=== PATIENT | female | born 1935 | race Caucasian/White ===

== ENCOUNTER 2018-07-12 23:57 | Emergency (ER) | payer OTHER, BC ==
[2018-07-13 00:46] LABS: Absolute Lymphocytes (CBC) 1.2 K/uL (0.7-4.9); Absolute Monocytes 0.5 K/uL (0.1-1.3); Absolute Neutrophil 3.3 K/uL (1.8-8.0); Eosinophils % 3.2 % (0-4.4); Hematocrit 41.2 % (36.0-45.0); Lymphocytes % 22.8 % (15.3-44.8); MCH 32.1 pg (27.0-35.0); MCV 94.3 fL (80-100); MPV 7.8 fL (7.6-11.3); Monocytes % 9.8 % (3.3-12.3); RBC Red Blood Cell Count 4.37 M/uL (3.86-4.86)
[2018-07-13 00:50] LABS: Protime INR 0.94
[2018-07-13] MEDS ORDERED: NA CHLORIDE 0.9% 1,000 ML ONE (01:10)
[2018-07-13 01:11] LABS: ALT/SGPT 33 U/L (12-78); AST/SGOT 33 U/L (15-37); Albumin 3.4 g/dL (3.4-5.0); Alkaline Phosphatase 57 U/L (45-117); BUN Blood Urea Nitrogen 21 mg/dL (7-18); Bicarbonate 28 mmol/L (21-32); Bilirubin Direct 0.1 mg/dL (0-0.2); Bilirubin Total 0.4 mg/dL (0.2-1.0); CKMB Creatine Kinase MB < 1.0 ng/mL (0.3-3.6); Creatine Phosphokinase 73 U/L (26-192); Glucose Level 113 mg/dL (74-106); Magnesium 2.3 mg/dL (1.8-2.4); NT PRO-BNP 163 pg/mL (<450); Potassium 3.8 mmol/L (3.5-5.1); Protein, Total 6.8 g/dL (6.4-8.2); Sodium Level 141 mmol/L (136-145)
[2018-07-13 01:50] LABS: Urine Blood 1+ (NEG); Urine Glucose NEGATIVE (NEG); Urine Protein NEGATIVE (NEG); Urine Specific Gravity 1.015 (1.005-1.030); Urine pH 6.5 (5.0-7.0)
--- NOTE | 2018-07-13 06:01 | EKG ---
Test Date: 2018-07-13 Test Time: 00:37:03 Grease Man: YUE MEASUREMENT RESULTS: Intervals: Rate: 67 IA: 186 QRSD: 104 QT: 432 QTc: 456 [place]: P: 55 IA: 186 QRS: -51 T: 39 INTERPRETIVE STATEMENTS: Normal sinus rhythm Left axis deviation Abnormal ECG Compared to ECG 10/05/2011 12:35:18 Sinus bradycardia no longer present T-wave abnormality no longer present Electronically Signed On 07-13-18 06:01:11 CDT by Karthik Meade
--- NOTE | 2018-07-13 06:12 | ER ---
Nurse's Notes [facility] Name: Ashanti Chong Age: 83 yrs Sex: Female : 1935 Arrival Date: 07/13/2018 Time: 00:02 Bed 8 Private MD: Diagnosis: Essential (primary) hypertension;Strain of muscle, fascia and tendon at neck level;Headache Presentation: 07/13 00:03 Presenting complaint: Patient states: I had this head pain tonight that went up the tl2 left side of my neck into my head. It's a little better now. Reports slight dizziness at home. Transition of care: patient was not received from another setting of care. Onset of symptoms was July 12, 2018 at 23:00. Risk Assessment: Do you want to hurt yourself or someone else? Patient reports no desire to harm self or others. Initial Sepsis Screen: Does the patient meet any 2 criteria? No. Patient's initial sepsis screen is negative. Does the patient have a suspected source of infection? No. Patient's initial sepsis screen is negative. Care prior to arrival: None. 00:03 Method Of Arrival: [facility]: [facility] tl2 00:03 Acuity: ELIZABET 3 tl2 Triage Assessment: 00:07 Headache History: Denies prior headaches. General: Appears in no apparent distress. tl2 comfortable, Behavior is calm, cooperative, appropriate for age. Pain: Complains of pain in left gnosticist Pain radiates to left side of neck Pain currently is 2 out of 10 on a pain scale. Pain began 1 hour ago. Also complains of no other associated symptoms. Neuro: Level of Consciousness is awake, alert, obeys commands, Oriented to person, place, time, situation. Cardiovascular: Denies chest pain. Respiratory: Airway is patent Respiratory effort is even, unlabored, Respiratory pattern is regular, symmetrical. GI: No signs and/or symptoms were reported involving the gastrointestinal system. : No signs and/or symptoms were reported regarding the genitourinary system. Derm: Skin is pink, warm \T\ dry. Historical: - Allergies: 00:07 Cipro; tl2 - Home Meds: 00:07 Carafate 100 mg/mL Oral susp 10 mL 4 times per day [Active]; CoQ-10 200 mg Oral cap tl2 [Active]; cranberry Oral [Active]; ducusate [Active]; Flonase Allergy Relief 50 mcg/actuation nasal spsn 2 sprays once daily [Active]; folic acid 400 mcg Oral tab 1 tab once daily [Active]; magnesium oxide 500 mg Oral tab [Active]; meloxicam 15 mg Oral tab 1 tab once daily [Active]; methotrexate sodium 2.5 mg Oral tab 1 tab once wkly [Active]; Nexium 40 mg Oral cpDR 1 cap once daily [Active]; red yeast rice Oral [Active]; Vesicare 10 mg Oral tab 1 tab once daily [Active]; - PMHx: 00:07 Arthritis; ibs; tl2 - PSHx: 00:07 Cholecystectomy; Hysterectomy; tl2 - Immunization history:: Adult Immunizations up to date. - Social history:: Smoking status: Patient/guardian denies using tobacco. - Ebola Screening: : No symptoms or risks identified at this time. Screenin:09 Abuse screen: Denies threats or abuse. Nutritional screening: No deficits noted. tl2 Tuberculosis screening: No symptoms or risk factors identified. Fall Risk None identified. Assessment: 00:09 General: see triage assessment. tl2 01:00 Reassessment: Patient appears in no apparent distress at this time. Patient and/or tl2 family updated on plan of care and expected duration. Pain level reassessed. Patient is alert, oriented x 3, equal unlabored respirations, skin warm/dry/pink. 02:05 Reassessment: Patient appears in no apparent distress at this time. Patient and/or tl2 family updated on plan of care and expected duration. Pain level reassessed. Patient is alert, oriented x 3, equal unlabored respirations, skin warm/dry/pink. 03:00 Reassessment: Placed another IV for CT angio of head and neck. CT notified. tl2 03:59 Reassessment: Pt out to CT. tl2 05:04 Reassessment: Patient appears in no apparent distress at this time. Patient and/or tl2 family updated on plan of care and expected duration. Pain level reassessed. Patient is alert, oriented x 3, equal unlabored respirations, skin warm/dry/pink. Awaiting CT result. 06:25 Reassessment: Patient appears in no apparent distress at this time. Patient and/or tl2 family updated on plan of care and expected duration. Pain level reassessed. Patient is alert, oriented x 3, equal unlabored respirations, skin warm/dry/pink. Pt verbalized understanding of discharge instructions, need for follow up and prescription usage Patient states feeling better. Vital Signs: 00:07 BP 184 / 60; Pulse 74; Resp 18; Temp 98.4(O); Pulse Ox 98% on R/A; Weight 63.96 kg; tl2 Height 5 ft. 4 in. (162.56 cm); Pain 2/10; 01:02 BP 178 / 66; Pulse 80; Resp 18; Pulse Ox 100% on R/A; tl2 02:04 BP 174 / 78; Pulse 71; Resp 18; Pulse Ox 99% on R/A; tl2 03:02 BP 148 / 60; Pulse 64; Resp 18; Pulse Ox 95% on R/A; tl2 05:04 BP 178 / 52; Pulse 63; Resp 18; Pulse Ox 96% on R/A; tl2 06:04 BP 167 / 50; Pulse 61; Resp 18; Pulse Ox 98% on R/A; tl2 00:07 Body Mass Index 24.20 (63.96 kg, 162.56 cm) tl2 ED Course: 00:02 Patient arrived in ED. rg2 00:02 Katarzyna Morgan, TIFF is Primary Nurse. tl2 00:04 Triage completed. tl2 00:07 Arm band placed on right wrist. tl2 00:09 Patient has correct armband on for positive identification. Bed in low position. Call tl2 light in reach. Side rails up X2. 00:09 Maintain EMS IV. Dressing intact. Good blood return noted. Site clean \T\ dry. Gauge \T\ tl 2 site: 22 g R wrist. 00:15 Paras Salazar MD is Attending Physician. yordan 00:36 X-ray completed. Portable x-ray completed in exam room. Patient tolerated procedure ml well. 00:37 XRAY Chest (1 view) In Process Unspecified. EDMS 02:49 Radiology exam delayed due to IV insertion attempt and/or patient not having kw1 appropriate IV at this time. 03:00 No provider procedures requiring assistance completed. Inserted saline lock: 22 gauge tl2 in left antecubital area, using aseptic technique. 04:[address] via stretcher. kw1 04:24 Head angio In Process Unspecified. EDMS 04:25 Neck Angio In Process Unspecified. EDMS 06:12 Balwinder Schwarz MD is Referral Physician. [facility] 06:25 IV discontinued, intact, bleeding controlled, No redness/swelling at site. Pressure tl2 dressing applied. Administered Medications: 01:07 Drug: NS 0.9% 1000 ml Route: IV; Rate: 125 ml/hr; Site: right wrist; tl2 06:27 Follow up: IV Status: Completed infusion tl2 Outcome: 06:12 Discharge ordered by . yordan 06:25 Discharged to home ambulatory, with family. tl2 06:25 Condition: stable 06:25 Discharge instructions given to patient, Instructed on discharge instructions, follow up and referral plans. medication usage, Demonstrated understanding of instructions, follow-up care, medications, Prescriptions given X 1. 06:30 Patient left the ED. tl2 Signatures: Dispatcher [employer] EDMA Tatyana Tavarez rg2 Paras Salazar MD MD cha Lopez, Melissa ml Knox, Taylor, TIFF RN tl2 Moni Marcial kw1
--- NOTE | 2018-07-13 06:13 | EDPHYS ---
Physician Documentation [facility] Name: Ashanti Chong Age: 83 yrs Sex: Female : 1935 Arrival Date: 07/13/2018 Time: 00:02 Bed 8 Private MD: ED Physician Paras Salazar HPI: 07/13 00:24 This 83 yrs old Female presents to ER via EMS with complaints of Neck Pain, yordan <24hrs Old. 00:24 The patient or guardian complains of pain. yordan Historical: - Allergies: 00:07 Cipro; tl2 - Home Meds: 00:07 Carafate 100 mg/mL Oral susp 10 mL 4 times per day [Active]; CoQ-10 200 mg Oral cap tl2 [Active]; cranberry Oral [Active]; ducusate [Active]; Flonase Allergy Relief 50 mcg/actuation nasal spsn 2 sprays once daily [Active]; folic acid 400 mcg Oral tab 1 tab once daily [Active]; magnesium oxide 500 mg Oral tab [Active]; meloxicam 15 mg Oral tab 1 tab once daily [Active]; methotrexate sodium 2.5 mg Oral tab 1 tab once wkly [Active]; Nexium 40 mg Oral cpDR 1 cap once daily [Active]; red yeast rice Oral [Active]; Vesicare 10 mg Oral tab 1 tab once daily [Active]; - PMHx: 00:07 Arthritis; ibs; tl2 - PSHx: 00:07 Cholecystectomy; Hysterectomy; tl2 - Immunization history:: Adult Immunizations up to date. - Social history:: Smoking status: Patient/guardian denies using tobacco. - Ebola Screening: : No symptoms or risks identified at this time. ROS: 00:26 Constitutional: Negative for fever, chills, and weight loss, Eyes: Negative for injury, yordan pain, redness, and discharge, ENT: Negative for injury, pain, and discharge, Neck: Negative for injury, pain, and swelling, Cardiovascular: Negative for chest pain, palpitations, and edema, Respiratory: Negative for shortness of breath, cough, wheezing, and pleuritic chest pain, Abdomen/GI: Negative for abdominal pain, nausea, vomiting, diarrhea, and constipation, Back: Negative for injury and pain, : Negative for injury, bleeding, discharge, and swelling, MS/Extremity: Negative for injury and deformity, Skin: Negative for injury, rash, and discoloration, Psych: Negative for depression, anxiety, suicide ideation, homicidal ideation, and hallucinations, Allergy/Immunology: Negative for hives, rash, and allergies, Endocrine: Negative for neck swelling, polydipsia, polyuria, polyphagia, and marked weight changes, Hematologic/Lymphatic: Negative for swollen nodes, abnormal bleeding, and unusual bruising. 00:26 Neuro: Positive for headache. Exam: 00:26 Constitutional: This is a well developed, well nourished patient who is awake, alert, yordan and in no acute distress. Head/Face: Normocephalic, atraumatic. Eyes: Pupils equal round and reactive to light, extra-ocular motions intact. Lids and lashes normal. Conjunctiva and sclera are non-icteric and not injected. Cornea within normal limits. Periorbital areas with no swelling, redness, or edema. ENT: Nares patent. No nasal discharge, no septal abnormalities noted. Tympanic membranes are normal and external auditory canals are clear. Oropharynx with no redness, swelling, or masses, exudates, or evidence of obstruction, uvula midline. Mucous membranes moist. Neck: Trachea midline, no thyromegaly or masses palpated, and no cervical lymphadenopathy. Supple, full range of motion without nuchal rigidity, or vertebral point tenderness. No Meningismus. Chest/axilla: Normal chest wall appearance and motion. Nontender with no deformity. No lesions are appreciated. Cardiovascular: Regular rate and rhythm with a normal S1 and S2. No gallops, murmurs, or rubs. Normal PMI, no JVD. No pulse deficits. Respiratory: Lungs have equal breath sounds bilaterally, clear to auscultation and percussion. No rales, rhonchi or wheezes noted. No increased work of breathing, no retractions or nasal flaring. Abdomen/GI: Soft, non-tender, with normal bowel sounds. No distension or tympany. No guarding or rebound. No evidence of tenderness throughout. Back: No spinal tenderness. No costovertebral tenderness. Full range of motion. Skin: Warm, dry with normal turgor. Normal color with no rashes, no lesions, and no evidence of cellulitis. MS/ Extremity: Pulses equal, no cyanosis. Neurovascular intact. Full, normal range of motion. Neuro: Awake and alert, GCS 15, oriented to person, place, time, and situation. Cranial nerves II-XII grossly intact. Motor strength 5/5 in all extremities. Sensory grossly intact. Cerebellar exam normal. Normal gait. Psych: Awake, alert, with orientation to person, place and time. Behavior, mood, and affect are within normal limits. 06:08 Neck: ROM/movement: is normal, no acute changes, Meningeal signs: are not present, [facility] Kernig's sign is negative, Brudzinski's sign is negative. Vital Signs: 00:07 BP 184 / 60; Pulse 74; Resp 18; Temp 98.4(O); Pulse Ox 98% on R/A; Weight 63.96 kg; tl2 Height 5 ft. 4 in. (162.56 cm); Pain 2/10; 01:02 BP 178 / 66; Pulse 80; Resp 18; Pulse Ox 100% on R/A; tl2 02:04 BP 174 / 78; Pulse 71; Resp 18; Pulse Ox 99% on R/A; tl2 03:02 BP 148 / 60; Pulse 64; Resp 18; Pulse Ox 95% on R/A; tl2 05:04 BP 178 / 52; Pulse 63; Resp 18; Pulse Ox 96% on R/A; tl2 06:04 BP 167 / 50; Pulse 61; Resp 18; Pulse Ox 98% on R/A; tl2 00:07 Body Mass Index 24.20 (63.96 kg, 162.56 cm) tl2 MDM: 00:15 Patient medically screened. [facility] 00:27 Data reviewed: vital signs, nurses notes, lab test result(s), EKG, radiologic studies, [facility] CT scan, plain films. 07/13 00:24 Order name: Basic Metabolic Panel [facility] 07/13 00:24 Order name: CBC with Diff [facility] 07/13 00:24 Order name: Ckmb [facility] 07/13 00:24 Order name: CPK [facility] 07/13 00:24 Order name: LFT's; Complete Time: :46 [facility] 07/13 00:24 Order name: Magnesium; Complete Time: :46 [facility] 07/13 00:24 Order name: NT PRO-BNP; Complete Time: :46 [facility] 07/13 00:24 Order name: PT-INR; Complete Time: :46 [facility] 07/13 00:24 Order name: Ptt, Activated; Complete Time: : [facility] 07/13 00:24 Order name: Troponin (emerg Dept Use Only); Complete Time: [facility] 07/13 00:24 Order name: Basic Metabolic Panel; Complete Time: [facility] 07/13 00:24 Order name: CBC with Automated Diff; Complete Time: [facility] 07/13 00:24 Order name: CKMB Creatine Kinase MB; Complete Time: [facility] 07/13 00:24 Order name: Creatine Phosphokinase; Complete Time: [facility] 07/13 00:24 Order name: XRAY Chest (1 view) [facility] 07/13 00:24 Order name: EKG; Complete Time: 00:24 [facility] 07/13 00:24 Order name: Cardiac monitoring; Complete Time: 00: [facility] 07/13 00:24 Order name: EKG - Nurse/Tech; Complete Time: 01: [facility] 07/13 00:24 Order name: IV Saline Lock; Complete Time: 00: [facility] 07/13 00:24 Order name: Labs collected and sent; Complete Time: 00: [facility] 07/13 00:24 Order name: O2 Per Protocol; Complete Time: 00: [facility] 07/13 00:24 Order name: O2 Sat Monitoring; Complete Time: 00: [facility] 07/13 00:24 Order name: Urine Dipstick-Ancillary (obtain specimen); Complete Time: 01:20 [facility] 07/13 00:27 Order name: Head angio [facility] 07/13 00:27 Order name: Neck Angio [facility] 07/13 01:18 Order name: Urine Dipstick--Ancillary (enter results); Complete Time: 02:45 rg2 Administered Medications: 01:07 Drug: NS 0.9% 1000 ml Route: IV; Rate: 125 ml/hr; Site: right wrist; tl2 06:27 Follow up: IV Status: Completed infusion tl2 Disposition: 07/13/18 06:12 Discharged to Home. Impression: Essential (primary) hypertension, Strain of muscle, fascia and tendon at neck level, Headache. - Condition is Stable. - Discharge Instructions: General Headache Without Cause, Hypertension, Muscle Strain, Hypertension, Zgzv-[id number], Muscle Strain, [id number], General Headache Without Cause, Yaek-lo-Arei, Managing Your Hypertension. - Prescriptions for Tylenol- Codeine #3 300-30 mg Oral Tablet - take 1 tablet by ORAL route every 4 hours As needed; 24 tablet. - Medication Reconciliation Form, Thank You Letter, Antibiotic Education, Prescription Opioid Use form. - Follow up: Private Physician; When: 2 - 3 days; Reason: Recheck today's complaints, Continuance of care, Re-evaluation by your physician. Follow up: Balwinder Schwarz MD; When: 2 - 3 days; Reason: Recheck today's complaints, Continuance of care, Re-evaluation by your physician. - Problem is new. - Symptoms have improved. Signatures: Dispatcher [employer] EDMS Paras Salazar MD MD cha Knox, Taylor RN RN tl2 Corrections: (The following items were deleted from the chart) 06:13 06:12 07/13/2018 06:12 Discharged to Home. Impression: Essential (primary) yordan hypertension; Strain of muscle, fascia and tendon at neck level. Condition is Stable. Discharge Instructions: Hypertension, Hypertension, Haih-pl-Lanj, Managing Your Hypertension, General Headache Without Cause, General Headache Without Cause, Eyyy-oa-Eunr. Prescriptions for Tylenol-Codeine #3 300-30 mg Oral Tablet - take 1 tablet by ORAL route every 4 hours As needed; 24 tablet. and Forms are Medication Reconciliation Form, Thank You Letter, Antibiotic Education, Prescription Opioid Use. Follow up: Private Physician; When: 2 - 3 days; Reason: Recheck today's complaints, Continuance of care, Re-evaluation by your physician. Follow up: Balwinder Schwarz; When: 2 - 3 days; Reason: Recheck today's complaints, Continuance of care, Re-evaluation by your physician. Problem is new. Symptoms have improved. yordan 06:30 06:13 07/13/2018 06:12 Discharged to Home. Impression: Essential (primary) tl2 hypertension; Strain of muscle, fascia and tendon at neck level; Headache. Condition is Stable. Discharge Instructions: Hypertension, Hypertension, Mhlh-zh-Lgae, Managing Your Hypertension, General Headache Without Cause, General Headache Without Cause, Sxwl-[id number]-[id number]. Prescriptions for Tylenol-Codeine #3 300-30 mg Oral Tablet - take 1 tablet by ORAL route every 4 hours As needed; 24 tablet. and Forms are Medication Reconciliation Form, Thank You Letter, Antibiotic Education, Prescription Opioid Use. Follow up: Private Physician; When: 2 - 3 days; Reason: Recheck today's complaints, Continuance of care, Re-evaluation by your physician. Follow up: Balwinder Schwarz; When: 2 - 3 days; Reason: Recheck today's complaints, Continuance of care, Re-evaluation by your physician. Problem is new. Symptoms have improved. yordan
[2018-07-13 06:36] VITALS: TEMP 98.4
[2018-07-13 06:42] VITALS: BP 167/50; O2SAT 98
--- NOTE | 2018-07-13 08:30 | RAD REPORT ---
EXAM DESCRIPTION: Thanh Single View07/13/2018 12:38 am CLINICAL HISTORY: Cough COMPARISON: 2012 FINDINGS: The lungs are mildly hyperaerated. The lungs appear clear of acute infiltrate. The heart i s normal size IMPRESSION: No acute abnormalities displayed
--- NOTE | 2018-07-13 11:21 | RAD REPORT ---
EXAM DESCRIPTION: Cecilymatthew Angio07/13/2018 4:25 am CLINICAL HISTORY: Syncope/headache/neck pain COMPARISON: None TECHNIQUE: 50 cc Isovue [address] angiogram neck was performed. Coronal and sagittal reconstruction was done. 3D MIP reconstruction was performed All CT scans are performed using dose optimization technique as appropriate and may include automated exposure control or mA/KV adjustment according to patient size. FINDINGS: Mild plaque is present within the carotid arteries. A high-grade stenosis is not noted. An occlusion is not seen. A dissection is not noted. Vertebral arteries are codominant without an abnormality. IMPRESSION: Mild plaque in the carotid arteries without evidence of a significant stenosis
--- NOTE | 2018-07-13 11:22 | RAD REPORT ---
EXAM DESCRIPTION: CTHead angio07/13/2018 7:05 am CLINICAL HISTORY: Syncope/headache COMPARISON: None TECHNIQUE: CT angiogram of the head was obtained. 50 cc Isovue 370 was intravenously. Coronal and sa gittal reconstruction was performed.A a preliminary report was generated by [employer] and re viewed prior to this dictation 3D MIP reconstruction was performed All CT scans are performed using dose optimization technique as appropriate and may include automated exposure control or mA/KV adjustment according to patient size. FINDINGS: The basilar, internal carotid, anterior cerebral, middle cerebral and posterior cerebral a rteries are normal caliber. An aneurysm is not seen. 2 millimeter infundibulum at the origin of the right posterior cerebral artery A significant stenosis is not noted. IMPRESSION: No significant abnormality is displayed
== END 2018-07-13 06:30 | disposition home or self-care (01) ==
LOC: ER 23:57
DX: S16.1XXA Strain of muscle, fascia and tendon at neck level, initial encounter (principal); X58.XXXA Exposure to other specified factors, initial encounter; Y93.9 Activity, unspecified; Y92.9 Unspecified place or not applicable; Z88.1 Allergy status to other antibiotic agents; M19.90 Unspecified osteoarthritis, unspecified site; I10 Essential (primary) hypertension; R51 Headache
CPT/HCPCS: 36415; 70496; 70498; 71045; 80048; 80076; 81003; 82550; 82553; 83735; 83880; 84484; 85025; 85610; 85730; 93005; J7030; Q9967; 96360; 96361; 99284